=== PATIENT | male | born 1975 | race African-American/Black ===

== ENCOUNTER 2016-12-13 15:04 | Emergency (ER) | payer BC ==
[~2016-12-13] VITALS: Ht 167.6 cm; Wt 84.1 kg
[~2016-12-13 15:04] MED LIST: AMOXICILLIN 50500 MG PO; ANUSOL HC CREAM30 GM TP; CEPHALEXIN500 M1; CEPHALEXIN500 M1 PO; CLEOCIN HCL300 MG PO; DOXYCYCLINE 10100 MG PO; FLAGYL500 MG PO; MONODOX100 PO; NAPROSYN500 MG PO; NORCO 325 MG-51 TAB PO; PEN-VEE K500 MG PO; UNK HTN MED; XANAX2 MG PO; [UNRECOGNIZED DRUG - REMARK]
[2016-12-13 15:07] VITALS: BP 141/103; PULSE 110; TEMP 97.8
[2016-12-13] MEDS ORDERED: XANAX XR2 M1 PO (15:09)
[2016-12-13] MEDS ORDERED: NORCO 325 MG-51 TAB PO (16:38)
[2016-12-13] MEDS ORDERED: PEN-VEE K500 MG PO (16:38)
== END 2016-12-13 16:50 | disposition home or self-care (01) ==
LOC: COL.ER 15:04
DX: K04.7 Periapical abscess without sinus (principal); K08.89 Other specified disorders of teeth and supporting structures; F17.210 Nicotine dependence, cigarettes, uncomplicated
CPT/HCPCS: J3010; Q9967

== ENCOUNTER 2017-01-16 09:55 | Emergency (ER) | payer OTHER ==
[~2017-01-16] VITALS: Ht 167.6 cm; Wt 79.5 kg
[~2017-01-16 09:55] MED LIST changes: +XANAX XR2 M1 PO
[2017-01-16 10:10] VITALS: BP 138/87; PULSE 89; TEMP 97.7
[2017-01-16] MEDS ORDERED: NORCO 325 MG-51 TAB PO (10:36)
[2017-01-16] MEDS ORDERED: CLEOCIN HCL300 MG PO (10:36)
== END 2017-01-16 11:05 | disposition home or self-care (01) ==
LOC: COL.ER 09:55
DX: K08.89 Other specified disorders of teeth and supporting structures (principal); K03.81 Cracked tooth
CPT/HCPCS: J1885

== ENCOUNTER 2017-02-17 16:23 | Emergency (ER) | payer OTHER ==
[~2017-02-17] VITALS: Ht 167.6 cm; Wt 80.9 kg
[2017-02-17 16:28] VITALS: BP 141/96; PULSE 96; TEMP 97.8
[2017-02-17] MEDS ORDERED: PEN-VEE K500 MG PO (18:10)
== END 2017-02-17 18:14 | disposition home or self-care (01) ==
LOC: COL.ER 16:23
DX: K08.89 Other specified disorders of teeth and supporting structures (principal); F43.10 Post-traumatic stress disorder, unspecified; F17.210 Nicotine dependence, cigarettes, uncomplicated

== ENCOUNTER 2017-02-19 12:37 | Emergency (ER) | payer OTHER ==
[~2017-02-19] VITALS: Ht 167.6 cm; Wt 80.9 kg
[2017-02-19 12:41] VITALS: BP 127/83; TEMP 97.7
[2017-02-19] MEDS ORDERED: AMBIEN CR 12.12.5 MG PO (12:46)
[2017-02-19] MEDS ORDERED: CELEXA10 MG/5 ML PO (12:47)
[2017-02-19] MEDS ORDERED: NORCO 325 MG-7.1 TAB PO (14:01)
[2017-02-19 14:07] VITALS: PULSE 87
== END 2017-02-19 14:08 | disposition home or self-care (01) ==
LOC: COL.ER 12:37
DX: K04.7 Periapical abscess without sinus (principal); F41.9 Anxiety disorder, unspecified

== ENCOUNTER 2017-12-27 04:48 | Emergency (ER) | payer OTHER ==
[~2017-12-27] VITALS: Ht 167.6 cm; Wt 86.4 kg
[~2017-12-27 04:48] MED LIST changes: +AMBIEN CR 12.12.5 MG PO; +CELEXA10 MG/5 ML PO; +NORCO 325 MG-7.1 TAB PO
[2017-12-27 04:52] VITALS: BP 147/103; PULSE 83; TEMP 97.7
[2017-12-27] MEDS ORDERED: NORCO 325 MG-51 TAB PO (05:08)
[2017-12-27] MEDS ORDERED: AMOXICILLIN 50500 MG PO (05:08)
== END 2017-12-27 05:16 | disposition home or self-care (01) ==
LOC: COL.ER 04:48
DX: K04.7 Periapical abscess without sinus (principal); F17.210 Nicotine dependence, cigarettes, uncomplicated

== ENCOUNTER 2018-01-26 10:18 | Emergency (ER) | payer OTHER ==
[~2018-01-26] VITALS: Ht 167.6 cm; Wt 86.4 kg
[2018-01-26 10:19] VITALS: BP 144/95; PULSE 93; TEMP 98.2
[2018-01-26] MEDS ORDERED: CLINDAMYCIN150 MG PO (10:37)
[2018-01-26] MEDS ORDERED: XANAX 1MG1 MG PO (10:38)
== END 2018-01-26 10:57 | disposition home or self-care (01) ==
LOC: COL.ER 10:18
DX: G89.29 Other chronic pain (principal); K08.89 Other specified disorders of teeth and supporting structures; F17.210 Nicotine dependence, cigarettes, uncomplicated; Z88.5 Allergy status to narcotic agent; Z87.828 Personal history of other (healed) physical injury and trauma

== ENCOUNTER 2018-11-18 17:28 | Emergency (ER) | payer OTHER ==
[~2018-11-18] VITALS: Ht 167.6 cm; Wt 77.3 kg
[~2018-11-18 17:28] MED LIST changes: +CLINDAMYCIN150 MG PO; +XANAX 1MG1 MG PO
[2018-11-18 17:39] VITALS: TEMP 98
[2018-11-18] MEDS ORDERED: CELEXA10 MG PO (18:37)
[2018-11-18] MEDS ORDERED: NORCO 325 MG-51 TAB PO (18:40)
[2018-11-18] MEDS ORDERED: COLACE 100100 MG/CAP PO (18:40)
[2018-11-18 19:35] VITALS: BP 124/89; PULSE 72
== END 2018-11-18 19:36 | disposition home or self-care (01) ==
LOC: COL.ER 17:28
DX: K64.4 Residual hemorrhoidal skin tags (principal); F17.210 Nicotine dependence, cigarettes, uncomplicated; Z88.6 Allergy status to analgesic agent

== ENCOUNTER 2019-01-20 15:58 | Emergency (ER) | payer OTHER ==
[~2019-01-20] VITALS: Ht 167.6 cm; Wt 75.0 kg
[~2019-01-20 15:58] MED LIST changes: +CELEXA10 MG PO; +COLACE 100100 MG/CAP PO
[2019-01-20 16:12] VITALS: BP 127/83; TEMP 97.6
[2019-01-20] MEDS ORDERED: AMOXICILLIN 50500 MG PO (16:32)
[2019-01-20] MEDS ORDERED: ULTRAM 50MG TAB50 MG PO (16:32)
[2019-01-20 16:40] VITALS: PULSE 86
== END 2019-01-20 16:40 | disposition home or self-care (01) ==
LOC: COL.ER 15:58
DX: K02.9 Dental caries, unspecified (principal); F17.210 Nicotine dependence, cigarettes, uncomplicated; Z88.6 Allergy status to analgesic agent

== ENCOUNTER 2019-05-29 23:23 | Emergency (ER) | payer OTHER ==
[~2019-05-29] VITALS: Ht 167.6 cm; Wt 77.3 kg
[~2019-05-29 23:23] MED LIST changes: +ULTRAM 50MG TAB50 MG PO
[2019-05-29 23:42] VITALS: BP 141/101; TEMP 97.9
[2019-05-30] MEDS ORDERED: AMOXICILLIN 8751 TAB PO (00:46)
[2019-05-30 01:06] VITALS: PULSE 80
== END 2019-05-30 01:08 | disposition home or self-care (01) ==
LOC: COL.ER 23:23
DX: K08.89 Other specified disorders of teeth and supporting structures (principal)

== ENCOUNTER 2019-07-16 23:04 | Emergency (ER) | payer SELFPAY ==
[~2019-07-16] VITALS: Ht 170.2 cm; Wt 72.7 kg
[~2019-07-16 23:04] MED LIST changes: +AMOXICILLIN 8751 TAB PO
[2019-07-16 23:05] VITALS: TEMP 98.1
[2019-07-16 23:38] LABS: BASO % 0.7 % (0.0-2.0); EOS # 0.1 (0.0-0.7); EOS % 1.9 % (0-4.0); GRAN # 1.8 (1.4-6.5); GRAN % 42.8 % (42.2-75.2); HEMATOCRIT 43.6 % (42.0-52.0); HEMOGLOBIN 14.3 g/dl (13.5-18.0); LYMPH # 1.8 (1.2-3.4); LYMPH % 44.3 % (20.0-51.0); MEAN CELL VOLUME 87 fl (80.0-100.0); MEAN CORPUSCULAR HEMOGLOBIN 29 pg (27.0-31.0); MEAN CORPUSCULAR HGB CONC 33 g/dl (33.0-37.0); MEAN PLATELET VOLUME 9.9 fl (7.4-10.4); MONO # 0.4 (0.1-0.6); MONO % 10.1 % (1.7-9.3); PLATELET COUNT 296 K/mm3 (130-400); RED BLOOD COUNT 5.01 M/mm3 (4.20-5.60); REDCELL DISTRIBUTION WIDTH-CV 13.4 % (11.5-14.5)
[2019-07-16 23:41] LABS: PROTHROMBIN TIME 12.1 SECONDS (9.7-12.8)
[2019-07-16 23:44] LABS: PARTIAL THROMBOPLASTIN TIME 35.6 SECONDS (26.0-37.0)
[2019-07-17 01:02] LABS: ALBUMIN 4.6 gm/dL (3.5-5.0); BILIRUBIN,TOTAL 0.7 mg/dL (0.0-1.0); CALCIUM 9.4 mg/dL (8.4-10.2); CREATININE, serum 0.78 (0.66-1.25); POTASSIUM 3.3 mmol/L (3.4-5.0); TOTAL PROTEIN 8.4 gm/dL (6.4-8.2)
[2019-07-17] MEDS ORDERED: NORCO 325 MG-51 TAB PO (01:41)
[2019-07-17] MEDS ORDERED: CEPHALEXIN500 M1 PO (01:41)
[2019-07-17 08:31] VITALS: BP 129/89; PULSE 87
== END 2019-07-17 08:30 | disposition home or self-care (01) ==
LOC: COL.ER 23:04
PROVIDERS: Emergency Medicine
DX: S06.0X0A Concussion without loss of consciousness, initial encounter (principal); S01.81XA Laceration without foreign body of other part of head, initial encounter; R40.2412 Glasgow coma scale score 13-15, at arrival to emergency department; Z23 Encounter for immunization; F17.210 Nicotine dependence, cigarettes, uncomplicated; V43.62XA Car passenger injured in collision with other type car in traffic accident, initial encounter
CPT/HCPCS: J0690; J3010; J7030

== ENCOUNTER 2020-09-27 08:40 | Inpatient (IN) | payer SELFPAY ==
[~2020-09-27] VITALS: Ht 167.6 cm; Wt 86.0 kg
[2020-09-27 11:43] LABS: HEMATOCRIT 51.2 % (42.0-52.0); HEMOGLOBIN 17.1 g/dl (13.5-18.0); MEAN CELL VOLUME 86 fl (80.0-100.0); MEAN CORPUSCULAR HEMOGLOBIN 29 pg (27.0-31.0); MEAN CORPUSCULAR HGB CONC 33 g/dl (33.0-37.0); MEAN PLATELET VOLUME 9.5 fl (7.4-10.4); PLATELET COUNT 317 K/mm3 (130-400); RED BLOOD COUNT 5.95 M/mm3 (4.20-5.60); REDCELL DISTRIBUTION WIDTH-CV 13.2 % (11.5-14.5)
[2020-09-27 11:50] LABS: ALANINE AMINOTRANSFERASE 18 U/L (4-49); ALBUMIN 4.7 gm/dL (3.5-5.0); ALKALINE PHOSPHATASE 132 U/L (50-136); ANION GAP 10 mmol/L (7-16); AST,SGOT 24 U/L (15-37); BILIRUBIN,TOTAL 1.5 mg/dL (0.0-1.0); BLOOD UREA NITROGEN 10 mg/dL (9-20); CALCIUM 9.6 mg/dL (8.4-10.2); CARBON DIOXIDE 32 mmol/L (22-30); CHLORIDE 97 mmol/L (98-107); CREATININE, serum 0.81 (0.66-1.25); GLUCOSE 118 mg/dL (74-106); LIPASE 18 U/L (23-300); POTASSIUM 4.6 mmol/L (3.4-5.0); SODIUM 138 mmol/L (137-145); TOTAL PROTEIN 8.7 gm/dL (6.4-8.2)
[2020-09-27 12:04] LABS: TROPONIN-I < 0.012 ng/mL (0.000-0.035)
[2020-09-27 12:16] LABS: BAND 55 % (0-10); LYMPHOCYTE 19 % (20.0-51.0); NEUTROPHILS 16 % (42.0-75.2); PLATELET ESTIMATE NORMAL (NORMAL)
--- NOTE | 2020-09-27 13:18 | NUR ---
Waiter/Waitress Cabin [employer] consulted for the patient. The patient has court this day at the [facility]. Per nurse, the court was requesting a letter regarding today's ED visit. ADDISON contacted Winnie with the [facility]. Winnie comfirmed they need a letter (on letterhead) stating that the patient is being seen in the ED and faxed. ADDISON completed letter and faxed it to Winnie. Fax # [phone]. There are no additional needs.
[2020-09-27 14:12] LABS: HEMATOCRIT 46.1 % (42.0-52.0); HEMOGLOBIN 15.5 g/dl (13.5-18.0); MEAN CELL VOLUME 87 fl (80.0-100.0); MEAN CORPUSCULAR HEMOGLOBIN 29 pg (27.0-31.0); MEAN CORPUSCULAR HGB CONC 34 g/dl (33.0-37.0); MEAN PLATELET VOLUME 9.8 fl (7.4-10.4); PLATELET COUNT 287 K/mm3 (130-400); RED BLOOD COUNT 5.33 M/mm3 (4.20-5.60); REDCELL DISTRIBUTION WIDTH-CV 13.2 % (11.5-14.5)
[2020-09-27 14:59] LABS: BAND 23 % (0-10); EOSINOPHIL 2 % (0-4); LYMPHOCYTE 21 % (20.0-51.0); NEUTROPHILS 46 % (42.0-75.2); PLATELET ESTIMATE NORMAL (NORMAL)
[2020-09-27 16:00] VITALS: BP 118/67; PULSE 106; TEMP 97.6
--- NOTE | 2020-09-27 18:00 | NUR ---
Patient admitted from ED. He is alert and oriented. Denies pain and nausea at this time. Admissions assessment completed by Renée from [facility]. No other changes at this time. Call light within reach.
[2020-09-27 18:17] VITALS: BP 118/67; PULSE 106; TEMP 97.6
[2020-09-27 19:58] VITALS: BP 156/88; PULSE 109; TEMP 98.1
--- NOTE | 2020-09-27 20:15 | NUR ---
Pt. sitting up in bed at this time. Pt. is A&OX3, assessment complete. INT to lt. ac patent. Pt. denies pain or other needs, call light within reach.
[2020-09-27 23:39] VITALS: BP 145/88; PULSE 100; TEMP 98
[2020-09-28 03:54] VITALS: BP 113/74; PULSE 104; TEMP 98.5
[2020-09-28 07:21] VITALS: BP 133/87; PULSE 97; TEMP 97.9
--- NOTE | 2020-09-28 09:12 | NUR ---
Initial visit; Patient thanked Plate Washer for looking in on him and offering God's blessings.
[2020-09-28 09:31] LABS: HEMATOCRIT 43.8 % (42.0-52.0); HEMOGLOBIN 14.9 g/dl (13.5-18.0); MEAN CELL VOLUME 84 fl (80.0-100.0); MEAN CORPUSCULAR HEMOGLOBIN 29 pg (27.0-31.0); MEAN CORPUSCULAR HGB CONC 34 g/dl (33.0-37.0); MEAN PLATELET VOLUME 9.7 fl (7.4-10.4); PLATELET COUNT 299 K/mm3 (130-400); REDCELL DISTRIBUTION WIDTH-CV 12.8 % (11.5-14.5)
[2020-09-28 09:49] LABS: ALBUMIN 3.9 gm/dL (3.5-5.0); BILIRUBIN,TOTAL 1.1 mg/dL (0.0-1.0); CALCIUM 8.9 mg/dL (8.4-10.2); CREATININE, serum 0.76 (0.66-1.25); POTASSIUM 3.6 mmol/L (3.4-5.0); TOTAL PROTEIN 7.3 gm/dL (6.4-8.2)
[2020-09-28 10:00] LABS: BAND 61 % (0-10); LYMPHOCYTE 24 % (20.0-51.0); NEUTROPHILS 11 % (42.0-75.2); PLATELET ESTIMATE NORMAL (NORMAL)
[2020-09-28 12:13] VITALS: BP 117/77; PULSE 97; TEMP 98.2; TEMP 98.4
--- NOTE | 2020-09-28 15:15 | NUR ---
Insurance Coordinator met with the patient to complete intake. The patient lives in [place] with his girlfriend, Grace Stahl. The patient denies DME use and is independent with ADLs. The patient has been seen a [facility] in the past and was willing to set up follow up there. The patient receives medications at [facility]. The patient may need a medication voucher at discharge. The patient does not have advanced directives in the EMR. The patient has one daughter, Kee Russ who resides in [place]. He did not have contact information with him. The patient plans to return home at discharge and Grace will provide transportation. The patient reports that he and his girlfriend are working on getting him insurance through her employment. There are no additional needs at this time.
[2020-09-28 17:11] VITALS: BP 138/91; PULSE 99; TEMP 98.7
--- NOTE | 2020-09-28 18:30 | NUR ---
Patient has been doing well. He has continued to have abdominal pain. Encouraged him to get up an walk in the hallways, he has not. He stated he is passing flatus but is worried because he is not have bowel movements yet. Explained that walking will help with this. Explained he is on full liquid diet. No other changes at this time. Call light within reach.
[2020-09-28 20:06] VITALS: BP 140/93; PULSE 95; TEMP 98.9
[2020-09-29 00:33] VITALS: BP 123/78; PULSE 85; TEMP 98.8
--- NOTE | 2020-09-29 03:20 | NUR ---
Patient c/o abdominal pain 04/15, medications given at this time. Denies further needs at this time.
[2020-09-29 04:00] VITALS: BP 131/76; PULSE 80; TEMP 97.8
[2020-09-29 07:05] LABS: BASO % 0.2 % (0.0-2.0); EOS # 0.1 (0.0-0.7); EOS % 1.7 % (0-4.0); GRAN # 3.7 (1.4-6.5); GRAN % 63.8 % (42.2-75.2); HEMATOCRIT 40.2 % (42.0-52.0); HEMOGLOBIN 13.4 g/dl (13.5-18.0); LYMPH # 1.1 (1.2-3.4); MEAN CELL VOLUME 84 fl (80.0-100.0); MEAN CORPUSCULAR HEMOGLOBIN 28 pg (27.0-31.0); MEAN CORPUSCULAR HGB CONC 33 g/dl (33.0-37.0); MEAN PLATELET VOLUME 10.1 fl (7.4-10.4); MONO # 0.9 (0.1-0.6); MONO % 15.6 % (1.7-9.3); PLATELET COUNT 274 K/mm3 (130-400); RED BLOOD COUNT 4.79 M/mm3 (4.20-5.60); REDCELL DISTRIBUTION WIDTH-CV 12.7 % (11.5-14.5)
[2020-09-29 07:18] LABS: ALBUMIN 3.4 gm/dL (3.5-5.0); BILIRUBIN,TOTAL 0.7 mg/dL (0.0-1.0); CALCIUM 8.5 mg/dL (8.4-10.2); CREATININE, serum 0.77 (0.66-1.25); POTASSIUM 3.4 mmol/L (3.4-5.0); TOTAL PROTEIN 6.5 gm/dL (6.4-8.2)
--- NOTE | 2020-09-29 07:23 | NUR ---
Patient has done well throughout the night. Minimal needs. Independent in room. Fluids continue infusing per orders. Denies further needs at this time. Will report off to day shift.
[2020-09-29 08:27] VITALS: BP 129/85; PULSE 84; TEMP 97.9
[2020-09-29] MEDS ORDERED: ZOFRAN ODT4 MG PO (11:34)
[2020-09-29 12:28] VITALS: BP 145/83; PULSE 81; TEMP 98.8
--- NOTE | 2020-09-29 12:50 | NUR ---
Patient sitting up in chair. ready for discharge. rounded & orders received. Patient has had no complaints. Only thing is he is wanting diogenes ahmadi, reviewed diet restrictions with him. Patient Int DC. All discharge paperwork reviewed. Patient wheeled out with all beiongigns. denies questins or concerns, just wanting to discharge so he ccan go het diogenes ahmadi.
== END 2020-09-29 16:09 | disposition home or self-care (01) | DRG 392 ==
LOC: COL.ER 08:40 → SURG 15:18
PROVIDERS: Emergency Medicine; ADMIT Surgery
DX: K52.9 Noninfective gastroenteritis and colitis, unspecified (principal); K56.600 Partial intestinal obstruction, unspecified as to cause; F17.210 Nicotine dependence, cigarettes, uncomplicated; Z20.828 Contact with and (suspected) exposure to other viral communicable diseases
CPT/HCPCS: J2270; J2405; J7030; J7120; Q9967

== ENCOUNTER 2021-01-06 17:17 | Emergency (ER) | payer SELFPAY ==
[~2021-01-06] VITALS: Ht 167.6 cm; Wt 77.3 kg
[~2021-01-06 17:17] MED LIST changes: +ZOFRAN ODT4 MG PO
[2021-01-06 17:25] VITALS: TEMP 97.8
[2021-01-06 18:24] LABS: BASO % 0.2 % (0.0-2.0); EOS % 0.1 % (0-4.0); GRAN # 9.1 (1.4-6.5); GRAN % 86.8 % (42.2-75.2); HEMOGLOBIN 17.5 g/dl (13.5-18.0); LYMPH # 0.5 (1.2-3.4); MEAN CELL VOLUME 86 fl (80.0-100.0); MEAN CORPUSCULAR HEMOGLOBIN 29 pg (27.0-31.0); MEAN CORPUSCULAR HGB CONC 33 g/dl (33.0-37.0); MEAN PLATELET VOLUME 10.5 fl (7.4-10.4); MONO # 0.8 (0.1-0.6); MONO % 7.5 % (1.7-9.3); PLATELET COUNT 326 K/mm3 (130-400); RED BLOOD COUNT 6.12 M/mm3 (4.20-5.60); REDCELL DISTRIBUTION WIDTH-CV 13.4 % (11.5-14.5)
[2021-01-06 18:27] LABS: HEMATOCRIT 52.5 % (42.0-52.0)
[2021-01-06 19:00] LABS: ALBUMIN 4.4 gm/dL (3.5-5.0); BILIRUBIN,TOTAL 0.7 mg/dL (0.0-1.0); C-REACTIVE PROTEIN 3.9 mg/dL (0.0-0.9); CALCIUM 8.8 mg/dL (8.4-10.2); CREATININE, serum 0.81 (0.66-1.25); TOTAL PROTEIN 8.6 gm/dL (6.4-8.2)
[2021-01-06 19:02] LABS: POTASSIUM 4.8 mmol/L (3.4-5.0)
[2021-01-06 19:51] LABS: COLLECTION METHOD CLEAN CATCH
[2021-01-06 20:00] LABS: MUCOUS Present /lpf; PH 6 (5-8); SQUAMOUS EPITHELIAL 0-2 /hpf; URINE APPEARANCE Hazy; URINE BACTERIA None Seen /hpf; URINE BILIRUBIN Negative (NEGATIVE); URINE BLOOD Negative (NEGATIVE); URINE COLOR Yellow; URINE GLUCOSE Negative (NEGATIVE); URINE KETONE Negative (NEGATIVE); URINE LEUKOCYTE ESTERASE Negative (NEGATIVE); URINE NITRATE Negative (NEGATIVE); URINE PROTEIN(semi-quant) 1+ (NEGATIVE); URINE RBC 0-2 /hpf; URINE UROBILINOGEN Negative (NEGATIVE)
[2021-01-06 21:30] VITALS: BP 128/78; PULSE 78
== END 2021-01-06 21:33 | disposition home or self-care (01) ==
LOC: COL.ER 17:17
PROVIDERS: Emergency Medicine; Nurse Practitioner
DX: K52.9 Noninfective gastroenteritis and colitis, unspecified (principal); K56.609 Unspecified intestinal obstruction, unspecified as to partial versus complete obstruction; F17.210 Nicotine dependence, cigarettes, uncomplicated; Z88.8 Allergy status to other drugs, medicaments and biological substances
CPT/HCPCS: J2550; J7030; Q9967

== ENCOUNTER 2022-04-04 08:11 | Day surgery (SDC) | payer BC ==
[~2022-04-04] VITALS: Ht 167.6 cm; Wt 95.5 kg
[2022-04-04] VITALS (9 sets, daily range): BP systolic 108–140; BP diastolic 72–93; PULSE 77–88; TEMP 97.5–98.3
[2022-04-04 08:29] LABS: HEMATOCRIT 44.9 % (42.0-52.0); HEMOGLOBIN 15.3 g/dl (13.5-18.0); MEAN CELL VOLUME 83 fl (80.0-100.0); MEAN CORPUSCULAR HEMOGLOBIN 28 pg (27-31); MEAN CORPUSCULAR HGB CONC 34 g/dl (33.0-37.0); MEAN PLATELET VOLUME 10.1 fl (7.4-10.4); PLATELET COUNT 277 K/mm3 (130-400); REDCELL DISTRIBUTION WIDTH-CV 13.3 % (11.5-14.5)
[2022-04-04 08:47] LABS: ALBUMIN 3.7 gm/dL (3.5-5.0); BILIRUBIN,TOTAL 0.9 mg/dL (0.2-1.2); CREATININE, serum 0.83 mg/dL (0.72-1.25); POTASSIUM 3.6 mmol/L (3.5-4.5); TOTAL PROTEIN 8.1 gm/dL (6.2-8.1)
[2022-04-04 09:01] LABS: BAND 21 % (0-10); EOSINOPHIL 5 % (0-4); LYMPHOCYTE 31 % (20.0-51.0); METAMYELOCYTE 3 % (0-0); NEUTROPHILS 25 % (42.0-75.2)
[2022-04-04 09:02] LABS: PLATELET ESTIMATE NORMAL (NORMAL)
[2022-04-04] MEDS ORDERED: NORVASC 5MG5 MG/TAB PO (10:31)
[2022-04-04] MEDS ORDERED: ABILIFY5 MG PO (10:31)
--- NOTE | 2022-04-04 13:35 | NUR ---
The patient arrived to [place] [facility] from the Emergency Room. The patient transferred himself independently from the wheelchair to the cart in his room and appeared to tolerate the activity well. The patient's chart was brought with him. The patient has an INT to his left anecubital which appears without redness or edema. The patient's partner, Lincoln, is present at his bedide. Warm blanket provided. Call light is within reach. Denies any further needs.
--- NOTE | 2022-04-04 14:15 | NUR ---
The patient's IV to his left anecubital flushed easily and his pre op LR was started at this time. The patient appears to be resting comfortably on the cart waiting for surgery at this time. Call light remains within reach.
--- NOTE | 2022-04-04 16:20 | NUR ---
The patient was taken to the operating room via cart at this time. The patient's chart was sent with him to surgery. The patient's partner, Lincoln, is going to take the patient's belongings with her to his post operative room.
[2022-04-04] MEDS ORDERED: TYLENOL 500MG500 MG PO (17:03)
--- NOTE | 2022-04-04 19:00 | NUR ---
RECEIVED CHANGE OF SHIFT REPORT FROM DAY SHIFT RNMOMO. PATIENT RESTING IN BED WITH NO REPORTED NEEDS. INT IN PLACE TO LAC, NO OXYGEN NEEDED. TOLERATING ORAL INTAKE OF WATER WITH NO REPORT C/O NAUSEA. REPORTS PASSING FLATUS.
--- NOTE | 2022-04-04 20:19 | NUR ---
REPORTS SOME ABD DISCOMFORT, AGREEABLE TO TAKE TYLENOL OR IBUPROFEN. DENIES NAUSEA/CHEST PAIN/SOA AT THIS TIME. TOLERATING ORAL INTAKE. INT IN PLACE. ON ROOM AIR. HAS VISITORS AT BEDSIDE.
--- NOTE | 2022-04-04 20:55 | NUR ---
DENIES NAUSEA/CHEST PAIN. UP WITH SOME DISCOMFORT STILL AFTER TAKING TYLENOL, WANTING TO TAKE IBUPROFEN FOR ADDITIONAL PAIN MEDICATION.
--- NOTE | 2022-04-04 21:30 | NUR ---
SEE MAR FOR MOTRIN GIVEN. PATIENT AMBULATING WITH NO PROBLEMS.
--- NOTE | 2022-04-04 21:58 | NUR ---
PATIENT DISMISSED FROM UNIT VIA W/C, FAMILY MEMBER PRESENT TO TRANSPORT PATIENT HOME PER PRIVATE CAR. NO FURTHER QUESTIONS REPORTED AFTER DISCHARGE INSTRUCTIONS REVIEWED WITH PATIENT.
== END 2022-04-04 21:58 | disposition home or self-care (01) ==
LOC: COL.ER 08:11 → SDCO 12:35 → EDBEDREQSVC 12:53 → EDBEDREQ 12:53 → SURG 18:27 → SDCO 21:58
PROVIDERS: Emergency Medicine
DX: K35.80 Unspecified acute appendicitis (principal); Z87.891 Personal history of nicotine dependence
CPT/HCPCS: OP; J0330; J1100; J1885; J2250; J2405; J2543; J2704; J2765; J7030; J7120; Q9967